=== PATIENT | male | born 1935 | race Native Hawaiian/Other Pacific Islander ===

== ENCOUNTER 2016-10-19 11:21 | Outpatient (CLI) | payer OTHER, BC ==
[~2016-10-19 11:21] MED LIST: DOXA2TAB PO; FINA5TAB2 PO; GNP ASPIRIN325 M1 PO
[2016-10-19 11:45] LABS: PLATELET COUNT 212 K/uL (142-355)
[2016-10-19 12:57] LABS: POTASSIUM 4.2 mmol/L (3.6-5.2); SODIUM 140 mmol/L (136-145)
== END 2016-10-19 20:12 | disposition home or self-care (01) ==
LOC: LABW 11:21
PROVIDERS: Nurse Practitioner
DX: E03.8 Other specified hypothyroidism (principal); R53.83 Other fatigue; N40.0 Benign prostatic hyperplasia without lower urinary tract symptoms; E78.00 Pure hypercholesterolemia, unspecified
CPT/HCPCS: 36415; 80053; 80061; 84153; 84439; 84443; 85027

== ENCOUNTER 2016-10-31 06:20 | Outpatient (CLI) | payer OTHER, BC | END 2016-10-31 22:59 | disposition home or self-care (01) | LOC: CT 06:20 | DX: I71.4 Abdominal aortic aneurysm, without rupture (principal) | CPT/HCPCS: Q9963 ==

== ENCOUNTER 2016-12-28 15:18 | Outpatient (CLI) | payer OTHER, BC ==
[2016-12-28 15:43] LABS: PLATELET COUNT 179 K/uL (142-355)
== END 2016-12-28 19:10 | disposition home or self-care (01) ==
LOC: LAB 15:18
PROVIDERS: Nurse Practitioner Family
DX: M79.605 Pain in left leg (principal); Z79.899 Other long term (current) drug therapy; N40.0 Benign prostatic hyperplasia without lower urinary tract symptoms; E55.9 Vitamin D deficiency, unspecified; E03.8 Other specified hypothyroidism; E78.00 Pure hypercholesterolemia, unspecified; I71.4 Abdominal aortic aneurysm, without rupture; I10 Essential (primary) hypertension
CPT/HCPCS: 80053; 80061; 82306; 83036; 84154; 84439; 84443; 85027

== ENCOUNTER 2017-05-31 13:32 | Outpatient (CLI) | payer OTHER, BC ==
[2017-05-31 13:55] LABS: PLATELET COUNT 185 K/uL (142-355)
[2017-05-31 18:19] LABS: SODIUM 140.8 mmol/L (136-145)
[2017-05-31 18:20] LABS: LDL CHOLESTEROL 109.1 mg/dL (0-99*)
== END 2017-05-31 19:03 | disposition home or self-care (01) ==
LOC: LAB 13:32
PROVIDERS: Nurse Practitioner Family
DX: E03.8 Other specified hypothyroidism (principal); E55.9 Vitamin D deficiency, unspecified; N40.0 Benign prostatic hyperplasia without lower urinary tract symptoms; R53.83 Other fatigue; Z79.899 Other long term (current) drug therapy; Z51.81 Encounter for therapeutic drug level monitoring
CPT/HCPCS: 80053; 80061; 82652; 83036; 84436; 84443; 85027

== ENCOUNTER 2017-07-12 14:19 | Outpatient (CLI) | payer OTHER, BC ==
[2017-07-12 14:47] LABS: PLATELET COUNT 229 K/uL (142-355)
[2017-07-12 15:59] LABS: POTASSIUM 4.1 mmol/L (3.6-5.2); SODIUM 139 mmol/L (136-145)
== END 2017-07-12 15:20 | disposition home or self-care (01) ==
LOC: LAB 14:19
PROVIDERS: Nurse Practitioner Family
DX: N40.0 Benign prostatic hyperplasia without lower urinary tract symptoms (principal); E55.9 Vitamin D deficiency, unspecified; I10 Essential (primary) hypertension; E03.8 Other specified hypothyroidism; R53.83 Other fatigue; Z79.899 Other long term (current) drug therapy; Z51.81 Encounter for therapeutic drug level monitoring; K21.9 Gastro-esophageal reflux disease without esophagitis
CPT/HCPCS: 80053; 80061; 83036; 84436; 84443; 85027

== ENCOUNTER 2017-08-16 09:59 | Outpatient (CLI) | payer OTHER, BC | END 2017-08-16 19:34 | disposition home or self-care (01) | LOC: RAD 09:59 | DX: M54.5 Low back pain (principal); M62.830 Muscle spasm of back ==

== ENCOUNTER 2017-09-29 11:30 | Observation (INO) | payer OTHER, BC ==
[~2017-09-29] VITALS: Ht 208.3 cm; Wt 61.4 kg
[2017-09-29 13:50] LABS: PLATELET COUNT 112 K/uL (142-355)
[2017-09-29 13:50] LABS: POTASSIUM 3.5 mmol/L (3.6-5.2)
[2017-09-29 14:00] VITALS: BP 125/66; TEMP 98.9; Ht 208.3 cm; Wt 61.4 kg
[2017-09-29 16:00] VITALS: BP 125/66; TEMP 98.9
[2017-09-29] MEDS ORDERED: LEVO-T112 MCG PO (16:22)
[2017-09-29 20:31] VITALS: BP 149/61; TEMP 101.7
[2017-09-29 23:40] VITALS: BP 113/50; TEMP 98.9
[2017-09-30 04:00] VITALS: BP 136/49; TEMP 98.6
[2017-09-30 05:45] LABS: PLATELET COUNT 106 K/uL (142-355)
[2017-09-30 06:02] LABS: POTASSIUM 4.1 mmol/L (3.6-5.2); SODIUM 133 mmol/L (136-145)
[2017-09-30 07:38] VITALS: BP 136/54; TEMP 98.7
--- NOTE | 2017-09-30 11:30 | NUR ---
BHARGAVI RODRIGUEZ PLACED ON PT AT THIS TIME ORDERED
[2017-09-30 12:00] VITALS: BP 160/67; TEMP 98.6
[2017-09-30 16:00] VITALS: BP 141/56; TEMP 98.8
[2017-09-30 20:00] VITALS: BP 122/57; TEMP 97.8
[2017-10-01] VITALS: BP 118/54; TEMP 98.6
[2017-10-01 04:00] VITALS: BP 139/63; TEMP 97.9
[2017-10-01 06:10] LABS: PLATELET COUNT 106 K/uL (142-355)
[2017-10-01 06:35] LABS: POTASSIUM 3.6 mmol/L (3.6-5.2); SODIUM 135 mmol/L (136-145)
[2017-10-01 07:42] VITALS: BP 157/71; TEMP 97.6
--- NOTE | 2017-10-01 10:11 | NUR ---
20G IV TO THE L[facility] D/C AT THIS TIME WITH TIP INTACT. DISHARGE INSTRUCTIONS WERE GIVEN AT THIS TIME AND PT VERBALIZED UNDERSTANDING. PT IS NOW AWAITING A RIDE HOME FOR DISCHARGE.
--- NOTE | 2017-10-01 10:58 | NUR ---
PT D/C VIA WHEELCHAIR AT THIS TIME WITH FAMILY
== END 2017-10-01 10:52 | disposition home or self-care (01) ==
LOC: MED/SURG 11:30
PROVIDERS: ADMIT Nurse Practitioner Family
DX: J44.1 Chronic obstructive pulmonary disease with (acute) exacerbation (principal); R06.02 Shortness of breath; R50.9 Fever, unspecified; E86.0 Dehydration
CPT/HCPCS: 36415; 36591; 80053; 81000; 82570; 84300; 84540; 85027; 85379; 87040; 87804; 93005; 94640; 94664; 94760; 96360; 96361; 96365; 96366; 96367; 96375; 99220; G0378; G0379; J2920; J3490

== ENCOUNTER 2018-08-03 11:42 | Emergency (ER) | payer OTHER ==
[~2018-08-03] VITALS: Ht 182.9 cm; Wt 65.3 kg
[~2018-08-03 11:42] MED LIST changes: +LEVO-T112 MCG PO
[2018-08-03 11:55] VITALS: TEMP 98.1
[2018-08-03] MEDS ORDERED: ECPIRIN325 MG PO (12:02)
[2018-08-03 12:23] LABS: PLATELET COUNT 198 K/uL (142-355)
[2018-08-03 12:29] LABS: POTASSIUM 4.1 mmol/L (3.6-5.2)
[2018-08-03 13:45] VITALS: BP 166/68
== END 2018-08-03 13:45 | disposition home or self-care (01) ==
LOC: ED 11:42
DX: R42 Dizziness and giddiness (principal); R00.1 Bradycardia, unspecified
CPT/HCPCS: 36415; 80053; 81000; 84484; 85027; 93005; 99283